=== PATIENT | female | born 2000 | race Caucasian/White ===

== ENCOUNTER 2019-08-26 10:12 | Observation (INO) | payer BC, SELFPAY ==
[2019-08-26] VITALS (9 sets, daily range): BP systolic 123–126; BP diastolic 67–73; PULSE 25–110; TEMP 37.4; O2SAT 81–100; BMI 34.0
[2019-08-26] MEDS: TERBUTALINE SULFATE 1 MG/ML VIAL 0.25 MG SUB-Q ×2 (11:42→12:31)
[2019-08-26] MEDS: LACTATED RINGERS 1,000 ML 999 ML IV CONT (12:07)
[2019-08-26 13:05] LABS: Fetal Fibronectin Negative
--- NOTE | 2019-08-26 13:51 | OBADM ---
This patient, Khushi Cerrato, admitted to the OB room OB Post 116 for observation. Patient/family oriented to hospital policies and general routines including ID bracelet, bed and alarms, visiting hours, pain management, procedures, bathroom and other care routines, personal items, smoking policy, room service/diet, and visiting hours. Patient/Family are encouraged to report perceived risks to care and to ask questions if they do not understand what they are told or what they should do.
--- NOTE | 2019-08-26 14:00 | PC.NURSE ---
1124- called,informd pt came in stating she was having left lower abdominal pain that she thinks is a cyst. Informed pt is davin frequently. Orders received for terbutaline, SVE,FFN,IV with LR bolus.
--- NOTE | 2019-08-26 14:01 | PC.NURSE ---
1157- called in for update informed SVE was closed,long,and thick. Discharge orders received if FFN is negative and contractions stop.
--- NOTE | 2019-08-29 08:38 | PM.OBTRLD ---
OB - Triage/Final Diagnosis Visit Information Date of evaluation: 08/26/19 Reason for evaluation: threatened labor Evaluation Laboratory results: Laboratory Tests 08/26/19 11:55 Fibronectin Negative
== END 2019-08-26 13:15 | disposition home or self-care (01) ==
PROVIDERS: Admitting Provider Student in an Organized Health Care Education/Training Program; Visit Provider Student in an Organized Health Care Education/Training Program
DX: O47.03 False labor before 37 completed weeks of gestation, third trimester (principal); Z3A.32 32 weeks gestation of pregnancy
CPT/HCPCS: 82731; 96372; G0378; G0379; J3105; J7120

== ENCOUNTER 2019-10-17 20:44 | Observation (INO) | payer BC, SELFPAY ==
[2019-10-17 20:56] VITALS: BP 144/83; PULSE 102
[2019-10-17 21:00] VITALS: BP 138/73; PULSE 110
[2019-10-17 21:16] VITALS: BP 149/84; PULSE 104
[2019-10-17 21:31] VITALS: BP 132/77; PULSE 96
[2019-10-17 21:32] VITALS: TEMP 36.8
[2019-10-17 21:44] VITALS: BMI 38.4
--- NOTE | 2019-10-17 21:45 | OBADM ---
This patient, Khushi Cerrato, admitted to the OB room OB Post 117 for observation. Patient/family oriented to hospital policies and general routines including ID bracelet, bed and alarms, visiting hours, pain management, procedures, bathroom and other care routines, personal items, smoking policy, room service/diet, and visiting hours. Patient/Family are encouraged to report perceived risks to care and to ask questions if they do not understand what they are told or what they should do.
--- NOTE | 2019-11-04 11:52 | PM.OBTRLD ---
OB - Triage/Final Diagnosis Visit Information Date of evaluation: 10/17/19 Reason for evaluation: threatened labor
== END 2019-10-17 22:04 | disposition home or self-care (01) ==
PROVIDERS: Admitting Provider Student in an Organized Health Care Education/Training Program; Visit Provider Student in an Organized Health Care Education/Training Program
DX: O36.8130 Decreased fetal movements, third trimester, not applicable or unspecified (principal); Z3A.39 39 weeks gestation of pregnancy
CPT/HCPCS: G0378; G0379

== ENCOUNTER 2019-10-21 04:50 | Inpatient (IN) | payer BC, SELFPAY ==
[2019-10-21] VITALS (60 sets, daily range): BP systolic 47–159; BP diastolic 10–101; PULSE 79–204; RESP 16–18; TEMP 36.9–38.3; O2SAT 98–100; BMI 38.7
--- NOTE | 2019-10-21 05:16 | LDADM ---
This patient, Khushi Cerrato, was admitted to Labor/Delivery/Recovery 106 on 10/21/19 at 04:50. Plans for labor, pain management and were discussed with patient. Patient/family oriented to hospital policies and general routines including ID bracelet, bed and alarms, visiting hours, pain management, procedures, bathroom and other care routines, personal items, smoking policy, room service/diet and guest tray routines, security routines, and visiting hours. Patient/Family are encouraged to report perceived risks to care and to ask questions if they do not understand what they are told or what they should do. See OBIX for further documentation.
[2019-10-21 05:30] LABS: Basophils Percent Auto 0.3 % (0.2-1.2); Eosinophils Absolute Auto 0.1 K/mm3 (0-0.3); Eosinophils Percent Auto 0.8 % (0-4.4); Hematocrit 35.3 % (37.0-47.0); Hemoglobin 11.2 g/dL (12.0-15.0); Immature Granulocyte Absolute 0.02 K/mm3 (0.00-0.031); Immature Granulocyte Percent A 0.3 % (0-0.5); Lymphocytes Absolute Auto 2.06 K/mm3 (0.9-3.2); Lymphocytes Percent Auto 27.7 % (18.3-44.2); Mean Corpuscular HGB Conc 31.7 g/dl (32-36); Mean Corpuscular Hemoglobin 25.2 pg (26-34); Mean Corpuscular Volume 79.5 fl (80-100); Mean Platelet Volume 9.5 fl (7.4-10.4); Monocytes Absolute Auto 0.7 K/mm3 (0.1-0.6); Monocytes Percent Auto 9.7 % (2.6-8.5); Neutrophils Absolute Auto 4.6 K/mm3 (1.3-6.7); Neutrophils Percent Auto 61.2 % (45.5-73.1); Platelet Count Result 248 k/mm3 (150-375); Red Blood Count 4.44 M/mm3 (4.2-5.4); Red Cell Distribution Width 13.7 % (11.5-14.5); White Blood Count 7.5 K/mm3 (4.5-10.0)
[2019-10-21] MEDS: AMPICILLIN 2 GM/NS 100 ML 2 GM/100 ML BAG IVPB (05:32)
[2019-10-21] MEDS: LACTATED RINGERS 1,000 ML 125 ML IV CONT ×3 (05:32→10:41)
[2019-10-21] MEDS: OXYTOCIN 30 UNITS/NS 500 ML 30 UNITS/500 ML BAG IV CONT (05:33)
--- NOTE | 2019-10-21 06:03 | P.HPUP_ITS ---
History and Physical Update Update Date/Time: 10/21/19 06:03 19 yo at 40w1d who presents for IOL. She endorses good FM. Upon questioning she reports she has been leaking fluid for the past 2 days. She denies any regular contractions. History and Physical has been reviewed, including an updated exam of the patient. There are NO changes in the patient's condition. Risks, benefits, and alternatives have been discussed and questions answered. Patient agrees to proceed with procedure. A/P: 19 yo G1 at 40w1d who presents for IOL admit to L&D routine admission orders Rh+ GBS+, will start PCN ROM + on exam today, afebrile, WBC 7.5, continue to monitor for s/sx of infect ion FHT cat 1 will start pitocin continuous EFM
--- NOTE | 2019-10-21 06:38 | P.PNAN_ITS ---
Anes - Initial Pre Proc Eval Procedure: labor epidural Date/Time: 10/21/19 06:38 Surgeon: Kenan Oliveros MD Pre Op Diagnosis: labor pain Pre Op Diagnosis: Induction of Labor Patient Data Age: 19 Gender: F Height: 1.75 m Weight: 119 kg Last Vital Signs Temp 37.4 C 10/21/19 05:45 Pulse 93 10/21/19 06:36 BP 127/68 10/21/19 06:36 Pulse Ox 98 10/21/19 06:37 Allergies Allergy/AdvReac Type Severity Reaction Status Date / Time No Known Allergies Allergy Verified 10/17/19 22:33 Laboratory Tests 10/21/19 10/21/19 05:23 05:23 WBC 7.5 K/mm3 K/mm3 (4.5-10.0) RBC 4.44 M/mm3 M/mm3 (4.2-5.4) Hgb 11.2 g/dL L g/dL (12.0-15.0) Hct 35.3 % L % (37.0-47.0) MCV 79.5 fl L fl (80-100) MCH 25.2 pg L pg (26-34) MCHC 31.7 g/dl L g/dl (32-36) RDW 13.7 % % (11.5-14.5) Plt Count 248 k/mm3 k/mm3 (150-375) MPV 9.5 fl fl (7.4-10.4) Immature Gran % (Auto) 0.3 % % (0-0.5) Neut % (Auto) 61.2 % % (45.5-73.1) Lymph % (Auto) 27.7 % % (18.3-44.2) Harvey % (Auto) 9.7 % H % (2.6-8.5) Eos % (Auto) 0.8 % % (0-4.4) Baso % (Auto) 0.3 % % (0.2-1.2) Lymph # (Auto) 2.06 K/mm3 K/mm3 (0.9-3.2) Harvey # (Auto) 0.7 K/mm3 H K/mm3 (0.1-0.6) Eos # (Auto) 0.1 K/mm3 K/mm3 (0-0.3) Baso # (Auto) 0.0 K/mm3 K/mm3 (0.0-0.1) Abs Immat Gran (auto) 0.02 K/mm3 K/mm3 (0.00-0.031) Absolute Neuts (auto) 4.6 K/mm3 K/mm3 (1.3-6.7) Absolute Nucleated RBC 0.0 K/mm3 K/mm3 (0.0-0.012) Nucleated RBC % 0.0 % % (0.0-0.2) RPR Pending Patient hx anesthesia problems: none Family hx anesthesia problems: none [facility] Family History Family History (Updated 10/17/19 @ 22:14 by Jacqueline Whatley RN) Sibling Diabetes mellitus Mother Hyperthyroidism determined by thyroid function test Social History Social History Smoking status: Never smoker Substance use: never Gender identity (if verbalized by the patient): Female Spiritual care concerns: No Anes - Eval Final PreProcedure Day of Procedure 10/21/19 06:38 Patient weight: obese Heart: regular rate and rhythm Lungs: clear to auscultation and normal air movement Airway: Mallampati scale Neurological: alert and oriented ASA classification: II Emergent: no Anesthetic plan: proceed Anesthesia type and monitoring: regional epidural and standard monitoring Informed Consent: The patient's anesthetic plan and its attendant risks and benefits were discussed with the patient/family/POA. Questions were solicited and answers provided to the satisfaction of the patient/family/POA.
[2019-10-21] MEDS: CALCIUM CARBONATE (TUMS) 500 MG (200 MG ELEMENTAL) PO (08:17)
[2019-10-21] MEDS: FAMOTIDINE 20 MG/2 ML VIAL IV PUSH (08:17)
[2019-10-21] MEDS: AMPICILLIN 1 GM/NS 50 ML 1 GM/50 ML BAG IVPB (09:15)
[2019-10-21] MEDS: ONDANSETRON INJ 4 MG/2 ML VIAL IV PUSH (09:52)
[2019-10-21 11:27] LABS: Rapid Plasma Reagin Non-Reactive (NonReactive)
--- NOTE | 2019-10-21 13:13 | PM.OBPRVD ---
OB - Delivery Note Procedure Delivery date: 10/21/19 Procedure: Patient pushed for a spontaneous vaginal delivery. A nuchal cord x1 was noted and reduced on the perineum. After the head had delivered, the shoulder was noted to be stuck behind the pubic bone. Shoulder dystocia was called. The fetus was noted to deliver RENE with the right shoulder anterior. The patient was placed in Patricia maneuver and suprapubic pressure was applied. Gently downward traction was applied to the right to attempt to deliver under the pubic bone. When the should was again unable to be delivered, attention was then turned to the left posterior shoulder. I was unable to maneuver my hand in the posterior vagina enough to rotate or deliver the posterior shoulder. Attention was then turned to the anterior right shoulder. The right shoulder was swept counter clockwise toward the torso. As the shoulder was swept, gentle traction was again applied and the anterior should was delivered under the pubic bone. The total time of the shoulder dystocia was noted to be 50 seconds. The remainder of the fetus was delivered atraumatically and placed on the maternal abdomen. The cord was clamped and cut. The cord was double clamped and cut and a segment of cord was collected for cord gases. Cord blood was collected for blood type and Coomb's testing. The placenta delivered spontaneously and was noted to be intact. The perineum was inspected and there was a 1st degree perineal laceration. The laceration was repaired with 3-0 vicryl in the usual fashion. The uterus was firm and good hemostasis was noted. The patient and fetus were stable in the delivery room. Intrapartal events: Ceph-Pelvic Disproportion (shoulder dystocia ) Induction method: none Delivery augmentation: pitocin Delivery monitor: internal FHT and internal uterine Route of delivery: Episiotomy description: None Laceration description: Perineal - 1st Degree Delivery repair: vicryl Specimen: No Estimated blood loss (mL): 250 Anesthesia type: Epidural Disposition: floor () Complications: No immediate complications [place] [facility] Date of : 10/21/19 Time of : 13:04 Weeks of gestation at delivery: 40 gender: Male Weight (pounds): 8 Weight (ounces): 10 presentation: vertex position: Left Occiput Anterior Placenta delivery description: Spontaneous cord vessel description: 3 Vessels and Nuchal Cord score one minute: 7 score five minutes: 9
[2019-10-21] MEDS: OXYTOCIN 30 UNITS/NS 500 ML 30 UNITS/500 ML BAG 125 UNITS IV CONT (13:38)
[2019-10-21] MEDS: BENZOCAINE 20% AER SPR (*SP) 56 GM CAN 1 SPRAY TOPICAL (14:23)
[2019-10-21] MEDS: WITCH HAZEL 40 PADS 1 PAD TOPICAL (14:23)
[2019-10-21] MEDS: ACETAMINOPHEN 325 MG TABLET 650 MG PO (14:23)
--- NOTE | 2019-10-21 15:40 | PC.NURSE ---
Patient transferred to post room #283 via wheelchair. Support person present. Oriented to unit, room, information board, rooming in, admission packet and security measures. Patient verbalizes understanding.
[2019-10-21] MEDS: IBUPROFEN 600 MG TABLET PO ×2 (16:23→23:13)
[2019-10-21] MEDS: DOCUSATE SODIUM 100 MG CAPSULE PO (16:23)
[2019-10-22 04:49] LABS: Hemoglobin 8.8 g/dL (12.0-15.0)
--- NOTE | 2019-10-22 07:09 | PM.DS ---
DS: Admitting Diagnosis Admitting Diagnosis Admitting Diagnosis: term/htn DS: Summary Time Spent with Patient Time attestation: Total time spent providing and/or coordinating discharge services: Exam Const: General: no acute distress Eyes: General: appearance normal, both eyes and all related structures Neck: Neck: supple and no JVD Thyroid: thyroid normal Resp: Effort & Inspection: normal respiratory effort Auscultation: clear to auscultation bilaterally Cardio: Rate: regular rate Rhythm: regular rhythm GI: Inspection: non-distended GI Palp: Yes Soft to palpation, No Tenderness to palpation present (GI) and No Guarding due to palpation present (GI) Auscultation: normal bowel sounds : General: Yes bladder normal to palpation External Female Exam: normal external appearance Speculum Exam - Vagina: normal vaginal discharge and No vaginal bleeding Speculum Exam - Cervix: nontender Bimanual exam- vagina & uterus: bladder normal to palpation and No Cervical tenderness present OB/external & speculum: No vaginal bleeding Skin: General skin exam: no rashes or lesions noted Extrem: General: normal to inspection and no edema Psych: Mental Status: mental status grossly normal Affect: normal affect DS: Data Data Completed and Pending Labs on day of discharge: Labs from last 24 hours 10/22/19 10/21/19 04:18 05:23 Hgb 8.8 L Hct 28.0 L RPR Non-reactive Discharge Plan Discharge Attending physician on discharge: Kenan Oliveros Consulting providers: Martir Merino Discharging Clinician: Kenan Oliveros Patient Disposition: Home, Self-Care Activity: may shower, no straining and pelvic rest Diet: heart healthy Patient Instructions: Antibiotic Form Stand Alone Forms: General Discharge Information Follow-up/Referrals: Armando Darnell MD [Physician] - Kenan Oliveros MD [Physician] - Discharge Medications: Continued PNV cmb#95-ferrous fumarate-FA [] 28 mg iron- 800 mcg Tablet 1 tablet PO DAILY RF: 0 Date of admission: 10/21/19 04:50 Primary Care Provider: PHYSICIAN,ELECTRICAL LABORATORY TECHNICIAN Admitting Provider: Kenan Oliveros Attending physician on admission: Kenan Oliveros
[2019-10-22 07:45] VITALS: PULSE 109; RESP 16; O2SAT 100
[2019-10-22] MEDS: POLYSACCHARIDE IRON COMPLEX 150 MG CAPSULE PO (07:54)
[2019-10-22] MEDS: IBUPROFEN 600 MG TABLET PO ×2 (07:54→14:32)
[2019-10-22 08:20] VITALS: BP 124/69; PULSE 107; RESP 16; TEMP 37.6; O2SAT 99
--- NOTE | 2019-10-22 10:13 | WPDANLDPN2 ---
Anes-Prog Note L&D Date/Time: 10/22/19 10:13 Comfortable throughout: labor and delivery Neuraxial method: epidural Epidural/Spinal procedure site: clean & non-tender Neuro status: Neuro function grossly intact. Cardiovascular status: normal Respiratory status: normal Airway patency: baseline Mental status: baseline Post-Op hydration status: normal Vital Signs: Last Vital Signs Temp 37.6 C H 10/22/19 08:20 Pulse 107 H 10/22/19 08:20 Resp 16 10/22/19 08:20 BP 124/69 10/22/19 08:20 Pulse Ox 99 10/22/19 08:20 Pain score (VAS): 0/10. Patient resting in bed at time of assessment, appears comfortable. Post-procedural complaints: none Patient feedback: Patient satisfied with anesthetic care.
[2019-10-22] MEDS: TETANUS,DIPHTHERIA,AC PERTUSSIS ADULT (0.5 ML) BOOSTRIX IM (14:34)
[2019-10-22 20:24] VITALS: BP 124/69; PULSE 102; RESP 18; TEMP 36.9; O2SAT 98
[2019-10-23] MEDS: DOCUSATE SODIUM 100 MG CAPSULE PO (07:16)
[2019-10-23] MEDS: POLYSACCHARIDE IRON COMPLEX 150 MG CAPSULE PO (07:16)
[2019-10-23 08:00] VITALS: BP 141/72; PULSE 101; RESP 18; TEMP 36.9
--- NOTE | 2019-10-23 10:27 | PC.NURSE ---
Patient viewed the discharge video Mother & Baby Care, The First Two Weeks . Patient was given the opportunity and encouraged to ask questions. Patient verbalized understanding of information shared and has been given the mother/baby guide for home reference.
--- NOTE | 2019-10-23 10:48 | PM.OBPNVD ---
OB - PN: Subj Subjective Date/time seen: 10/23/19 10:48 Narrative: Pain OK. OB - PN: Obj Data Labs CBC & Chem 7: 10/22/19 04:18 OB - PN A/P Plan Comments: A: PPD#2, doing well. P: Home to f/u 6 weeks. Exam Psych: Other: AVSS ABD soft, nontender, fundus firm EXT nontender
[2019-10-25 09:48] VITALS: BP 135/78; PULSE 88; RESP 20; TEMP 36.9; O2SAT 98
== END 2019-10-23 12:15 | disposition home or self-care (01) | DRG 806 ==
LOC: ANHOB2 10-23 08:00 → ANHLDR 10-25 18:20 → ANHOB2 10-25 18:20
PROVIDERS: Admitting Provider Student in an Organized Health Care Education/Training Program; Visit Provider Obstetrics & Gynecology
DX: O42.12 Full-term premature rupture of membranes, onset of labor more than 24 hours following rupture (principal); O75.2 Pyrexia during labor, not elsewhere classified; Z37.0 Single live birth; O99.824 Streptococcus B carrier state complicating childbirth; Z3A.40 40 weeks gestation of pregnancy; O66.0 Obstructed labor due to shoulder dystocia; O36.8330 Maternal care for abnormalities of the fetal heart rate or rhythm, third trimester, not applicable or unspecified; O69.81X0 Labor and delivery complicated by cord around neck, without compression, not applicable or unspecified; O70.0 First degree perineal laceration during delivery; O63.0 Prolonged first stage (of labor); O99.214 Obesity complicating childbirth; E66.9 Obesity, unspecified
CPT/HCPCS: 36415; 84112; 85014; 85018; 85025; 86592; 86850; 86900; 86901; 90715; A9270; J0290; J1200; J2405; J2590; J2795; J7120

== ENCOUNTER 2021-09-12 18:22 | Outpatient (CLI) | payer BC, SELFPAY ==
[2021-09-12 19:12] VITALS: BP 142/69; PULSE 98
== END 2021-09-12 19:20 | disposition home or self-care (01) ==
LOC: ANHOBOP 19:10 → ANHLDR 19:11
PROVIDERS: Visit Provider Student in an Organized Health Care Education/Training Program
DX: O42.92 Full-term premature rupture of membranes, unspecified as to length of time between rupture and onset of labor (principal)
CPT/HCPCS: 59025; 84112; 99199

== ENCOUNTER 2021-09-13 18:05 | Inpatient (IN) | payer BC, SELFPAY ==
[2021-09-13] VITALS (9 sets, daily range): BP systolic 125–137; BP diastolic 53–70; PULSE 85–98; BMI 38.4
[2021-09-13] MEDS: DINOPROSTONE 10 MG VAG INSERT VAGINAL (18:45)
[2021-09-13 19:03] LABS: Basophils Percent Auto 0.5 % (0.2-1.2); Eosinophils Percent Auto 0.6 % (0-4.4); Hematocrit 31.4 % (37.0-47.0); Hemoglobin 9.6 g/dL (12.0-15.0); Immature Granulocyte Absolute 0.02 K/mm3 (0.00-0.031); Immature Granulocyte Percent A 0.3 % (0-0.5); Lymphocytes Absolute Auto 2.21 K/mm3 (0.9-3.2); Lymphocytes Percent Auto 33.6 % (18.3-44.2); Mean Corpuscular HGB Conc 30.6 g/dl (32-36); Mean Corpuscular Hemoglobin 22.9 pg (26-34); Mean Corpuscular Volume 74.9 fl (80-100); Mean Platelet Volume 9.5 fl (7.4-10.4); Monocytes Absolute Auto 0.5 K/mm3 (0.1-0.6); Monocytes Percent Auto 8.2 % (2.6-8.5); Neutrophils Absolute Auto 3.7 K/mm3 (1.3-6.7); Neutrophils Percent Auto 56.8 % (45.5-73.1); Platelet Count Result 267 k/mm3 (150-375); Red Blood Count 4.19 M/mm3 (4.2-5.4); Red Cell Distribution Width 14.9 % (11.5-14.5); White Blood Count 6.6 K/mm3 (4.5-10.0)
[2021-09-13] MEDS: ACETAMINOPHEN 500 MG TABLET 1000 MG PO (20:02)
--- NOTE | 2021-09-13 20:04 | LDADM ---
This patient, Khushi Cerrato, was admitted to Labor/Delivery/Recovery 104 on 09/13/21 at 18:05. Plans for labor, pain management and were discussed with patient. Patient/family oriented to hospital policies and general routines including ID bracelet, bed and alarms, visiting hours, pain management, procedures, bathroom and other care routines, personal items, smoking policy, room service/diet and guest tray routines, security routines, and visiting hours. Patient/Family are encouraged to report perceived risks to care and to ask questions if they do not understand what they are told or what they should do. See OBIX for further documentation.
[2021-09-14] VITALS (91 sets, daily range): BP systolic 55–153; BP diastolic 32–105; PULSE 76–171; RESP 16–18; TEMP 36.7–37.7; O2SAT 96–100
[2021-09-14] MEDS: AMPICILLIN 2 GM/NS 100 ML 2 GM/100 ML BAG IVPB (00:30)
[2021-09-14] MEDS: LACTATED RINGERS 1,000 ML 125 ML IV CONT ×3 (00:30→07:00)
[2021-09-14] MEDS: AMPICILLIN 1 GM/NS 50 ML 1 GM/50 ML BAG IVPB ×2 (04:30→08:16)
[2021-09-14] MEDS: OXYTOCIN 30 UNITS/NS 500 ML 30 UNITS/500 ML BAG IV CONT (04:31)
--- NOTE | 2021-09-14 06:18 | P.PNAN_ITS ---
Anes - Eval Pre Procedure Procedure: labor epidural Date/Time: 09/14/21 06:18 Surgeon: navneet Preop Diagnosis: pain during labor Pre Op Diagnosis: IOL Patient Data Age: 21 Gender: F Height: 1.75 m Weight: 118 kg Last Vital Signs Temp 36.8 C 09/14/21 06:00 Pulse 100 09/14/21 06:16 BP 145/67 H 09/14/21 06:16 Pulse Ox 99 09/14/21 06:14 Allergies Allergy/AdvReac Type Severity Reaction Status Date / Time No Known Allergies Allergy Verified 10/17/19 22:33 Home Medications Medication Instructions Recorded Confirmed Type PNV cmb#95-ferrous fumarate-FA 1 tablet PO DAILY 10/21/19 08/31/21 History [] citalopram 40 mg PO DAILY 08/31/21 08/31/21 History Laboratory Tests 09/13/21 09/13/21 09/13/21 18:40 18:40 18:40 WBC 6.6 K/mm3 K/mm3 (4.5-10.0) RBC 4.19 M/mm3 L M/mm3 (4.2-5.4) Hgb 9.6 g/dL L g/dL (12.0-15.0) Hct 31.4 % L % (37.0-47.0) MCV 74.9 fl L fl (80-100) MCH 22.9 pg L pg (26-34) MCHC 30.6 g/dl L g/dl (32-36) RDW 14.9 % H % (11.5-14.5) Plt Count 267 k/mm3 k/mm3 (150-375) MPV 9.5 fl fl (7.4-10.4) Immature Gran % (Auto) 0.3 % % (0-0.5) Neut % (Auto) 56.8 % % (45.5-73.1) Lymph % (Auto) 33.6 % % (18.3-44.2) Schley % (Auto) 8.2 % % (2.6-8.5) Eos % (Auto) 0.6 % % (0-4.4) Baso % (Auto) 0.5 % % (0.2-1.2) Lymph # (Auto) 2.21 K/mm3 K/mm3 (0.9-3.2) Schley # (Auto) 0.5 K/mm3 K/mm3 (0.1-0.6) Eos # (Auto) 0.0 K/mm3 K/mm3 (0-0.3) Baso # (Auto) 0.0 K/mm3 K/mm3 (0.0-0.1) Abs Immat Gran (auto) 0.02 K/mm3 K/mm3 (0.00-0.031) Absolute Neuts (auto) 3.7 K/mm3 K/mm3 (1.3-6.7) Absolute Nucleated RBC 0.0 K/mm3 K/mm3 (0.0-0.012) Nucleated RBC % 0.0 % % (0.0-0.2) RPR Pending Blood Type B Positive Antibody Screen Negative Patient hx anesthesia problems: none Family hx anesthesia problems: none Results Review: All pre-operative results and documents have been reviewed as part of the pre-operative evaluation. [facility] Past Medical History Medical History (Updated 09/14/21 @ 06:19 by Marilee Ramirez CRNA) IUP (intrauterine ), incidental Obesity Family History Family History Sibling Diabetes mellitus Mother Hyperthyroidism determined by thyroid function test Social History Social History Smoking status: Never smoker Substance use: never Gender identity (if verbalized by the patient): Female Spiritual care concerns: No Exam Day of Procedure 09/14/21 06:18
[2021-09-14 06:33] LABS: Rapid Plasma Reagin Non-Reactive (NonReactive)
[2021-09-14] MEDS: CALCIUM CARBONATE (TUMS) 500 MG (200 MG ELEMENTAL) PO (08:15)
--- NOTE | 2021-09-14 08:45 | WPDOBADMIT ---
Obstetrics - Admit Note Admission Note: record reviewed. Additions to the history and/or subsequent changes in the physical findings follow. 21 y/o at 39 weeks here for scheduled induction of labor. Prior baby weighed 8#10oz and a mild shoulder dystocia was encountered. GBS pos. Cervidil overnight. SROM after MN, now receiving oxytocin. Comfortable with epidural. AVSS NST reactive TOCO: contractions every 2-4 min ABD soft, nontender, gravid, vertex EXT nontender Cervix 7/100/-1 A: IUP at term, here for IOL. GBS pos. P: Continue ampicillin. Oxytocin. Anticipate . Reviewed risks, benefits, alternatives to induction of labor. Specifically, reviewed risks of shoulder dystocia. She prefers to go ahead with induction of labor.
[2021-09-14] MEDS: ONDANSETRON INJ 4 MG/2 ML VIAL IV PUSH (08:50)
--- NOTE | 2021-09-14 09:47 | P.DS_ITS ---
DS: Admitting Diagnosis Discharge Date 09/15/21 Admitting Diagnosis IUP at 39 weeks GBS colonization DS: Discharge Diagnosis Discharge Diagnosis (1) (normal spontaneous vaginal delivery): Code(s): O80 - Encounter for full-term uncomplicated delivery Status: Acute (2) GBS (group B Streptococcus carrier), +RV culture, currently : Code(s): O99.820 - Streptococcus B carrier state complicating Status: Acute OB - DS: Summary OB Procedures : None OB Procedures Intrapartum: Spontaneous Vag Delivery OB Procedures: : None DS: Data Data Completed and Pending Labs on day of discharge: Labs from last 24 hours 09/13/21 09/13/21 09/13/21 18:40 18:40 18:40 WBC 6.6 RBC 4.19 L Hgb 9.6 L Hct 31.4 L MCV 74.9 L MCH 22.9 L MCHC 30.6 L RDW 14.9 H Plt Count 267 MPV 9.5 Immature Gran % (Auto) 0.3 Neut % (Auto) 56.8 Lymph % (Auto) 33.6 Todd % (Auto) 8.2 Eos % (Auto) 0.6 Baso % (Auto) 0.5 Lymph # (Auto) 2.21 Todd # (Auto) 0.5 Eos # (Auto) 0.0 Baso # (Auto) 0.0 Abs Immat Gran (auto) 0.02 Absolute Neuts (auto) 3.7 Absolute Nucleated RBC 0.0 Nucleated RBC % 0.0 RPR Non-reactive Blood Type B Positive Antibody Screen Negative Discharge Plan Discharge Attending physician on discharge: Franky Chung Discharging Clinician: Franky Chung Patient Disposition: Home, Self-Care Activity: pelvic rest Diet: regular Discharge Instructions: Call or return if temperature above 100.4? F, increased abdominal pain, increased vaginal bleeding or any new problems. Stand Alone Forms: General Discharge Information Follow-up/Referrals: Kenan Oliveros MD [Physician] - 6 Weeks Discharge Medications: New ibuprofen 600 mg tablet 600 mg PO Q6H PRN (Reason: cramps) Qty: 30 RF: 0 ferrous sulfate 325 mg (65 mg iron) tablet 325 mg PO DAILY Qty: 30 RF: 0 Continued PNV cmb#95-ferrous fumarate-FA [] 28 mg iron- 800 mcg Tablet 1 tablet PO DAILY RF: 0 citalopram 40 mg Tablet 40 mg PO DAILY RF: 0 Date of admission: 09/13/21 18:05 Primary Care Provider: PHYSICIAN,[employer]ICE OR WORK DISPATCHER Admitting Provider: Kenan Oliveros Attending physician on admission: Kenan Oliveros Condition: Stable
--- NOTE | 2021-09-14 09:47 | P.PCNOB_ITS ---
OB - Delivery Note Procedure Delivery date: 09/14/21 Procedure: Induction of labor with Events: Positive Group B Strep (GBS) Induction method: Per Cervidil Protocol Delivery augmentation: Pitocin Delivery monitor: External FHT, External Uterine and Internal Uterine Route of delivery: Laceration Description: None Specimen: Yes (cord blood) Quantitative Blood Loss (ml): 120 Anesthesia type: Epidural Disposition: PACU Complications: None Narrative: 21 y/o at 39 weeks gestation who presented to the hospital for induction of labor. Cervidil was placed overnight. She received ampicillin for GBS colonization. She had SROM and Cervidil was removed. Oxytocin was administered intravenously. She received an epidural for pain control. Her labor progressed and her cervix dilated completely. She pushed with good effort and delivered the infant's head to the perineum, followed by the body. The nose and mouth were bulb suctioned. After a delay, the cord was clamped and cut. The was handed off the field. Cord blood was collected. The placenta delivered spontaneously and was grossly normal in appearance. The usual 3 vessel cord was noted. There were no lacerations. Needle and instrument counts were correct. The patient was taken to recovery room in stable condition. The went to the nursery in stable condition. I was present and scrubbed for the entire delivery. [place] [facility] Date of : 09/14/21 Time of : 09:36 Weeks of gestation at delivery: 39 gender: Female Weight (pounds): 7 Weight (ounces): 11 presentation: vertex position: Left Occiput Anterior Placenta delivery description: Spontaneous and Normal Configuration Cord Vessel Description: 3 Vessels and Delayed Cord Clamping score one minute: 9 score five minutes: 9
[2021-09-14] MEDS: OXYTOCIN 30 UNITS/NS 500 ML 30 UNITS/500 ML BAG 125 UNITS IV CONT (10:14)
[2021-09-14] MEDS: WITCH HAZEL 40 PADS 1 PAD TOPICAL (11:47)
[2021-09-14] MEDS: IBUPROFEN 600 MG TABLET PO ×2 (11:47→23:14)
--- NOTE | 2021-09-14 12:56 | OBPPTRN ---
1203-Patient transferred to post room #283 via wheelchair. Support person present. Oriented to unit, room, information board, rooming in, admission packet and security measures. Patient verbalizes understanding.
[2021-09-14] MEDS: DOCUSATE SODIUM 100 MG CAPSULE PO (17:19)
[2021-09-14] MEDS: POLYSACCHARIDE IRON COMPLEX 150 MG CAPSULE PO (17:19)
[2021-09-15 04:08] VITALS: BP 125/68; PULSE 98; RESP 16; TEMP 36.5
[2021-09-15 04:39] LABS: Hematocrit 27.4 % (37.0-47.0); Hemoglobin 8.4 g/dL (12.0-15.0)
--- NOTE | 2021-09-15 08:29 | PM.OBPNVD ---
OB - PN: Subj Subjective Date/time seen: 09/15/21 08:29 Narrative: Pain OK. Would like to go home if OK with peds. OB - PN: Obj Data Labs CBC & Chem 7: 09/15/21 04:11 Labs: Laboratory Results - last 24 hr 09/15/21 04:11 Hgb 8.4 L Hct 27.4 L OB - PN A/P Plan Comments: A: PPD#1, doing well. P: Home if OK with peds, to f/u 6 weeks. Exam Psych: Other: AVSS ABD soft, nontender, fundus firm EXT nontender
[2021-09-15] MEDS: DOCUSATE SODIUM 100 MG CAPSULE PO (08:49)
[2021-09-15] MEDS: TETANUS,DIPHTHERIA,AC PERTUSSIS ADULT (0.5 ML) BOOSTRIX IM (08:49)
[2021-09-15] MEDS: POLYSACCHARIDE IRON COMPLEX 150 MG CAPSULE PO (08:49)
--- NOTE | 2021-09-15 10:41 | WPDANLDPN2 ---
Anes-Prog Note L&D Date/Time: 09/15/21 10:41 Comfortable throughout: labor and delivery Neuraxial method: epidural Epidural/Spinal procedure site: clean & non-tender Neuro status: Neuro function grossly intact. Cardiovascular status: normal Respiratory status: normal Airway patency: baseline Mental status: baseline Post-Op hydration status: normal Vital Signs: Last Vital Signs Temp 97.7 F 09/15/21 04:08 Pulse 98 09/15/21 04:08 Resp 16 09/15/21 04:08 BP 125/68 09/15/21 04:08 Pulse Ox 99 09/14/21 12:30 Pain score (VAS): 0/10 I/O: Intake & Output 09/14/21 09/15/21 09/15/21 23:59 07:59 15:59 Intake Total 500 600 Balance 500 600 Post-procedural complaints: none Patient feedback: Patient satisfied with anesthetic care.
--- NOTE | 2021-09-15 17:21 | PC.NURSE ---
1500 Patient was given the opportunity to view the discharge video Mother & Baby Care, The First Two Weeks and to ask questions. Patient declined viewing the video and has been given the mother/baby guide for home reference. She stated she viewed the video with her last child.
[2021-09-17 09:54] VITALS: BP 138/76; PULSE 89; RESP 16; TEMP 37.3; O2SAT 98
== END 2021-09-15 15:22 | disposition home or self-care (01) | DRG 807 ==
LOC: ANHLDR 09-14 12:32 → ANHOB2 09-15 13:25 → ANHLDR 09-17 11:29 → ANHOB2 09-17 11:29
PROVIDERS: Admitting Provider Student in an Organized Health Care Education/Training Program; Visit Provider Obstetrics & Gynecology
DX: O99.824 Streptococcus B carrier state complicating childbirth (principal); Z37.0 Single live birth; Z3A.39 39 weeks gestation of pregnancy; O36.8330 Maternal care for abnormalities of the fetal heart rate or rhythm, third trimester, not applicable or unspecified; O99.344 Other mental disorders complicating childbirth; F32.A Depression, unspecified; O99.892 Other specified diseases and conditions complicating childbirth; Z87.59 Personal history of other complications of pregnancy, childbirth and the puerperium
CPT/HCPCS: 36415; 84112; 85014; 85018; 85025; 86592; 86850; 86900; 86901; 90715; A9270; J0290; J2405; J2590; J2795; J7120

== ENCOUNTER 2023-09-29 14:01 | Outpatient (CLI) | payer BC, SELFPAY ==
[2023-09-29 15:24] LABS: Beta HCG Quantitative 3.67 mIU/ML
== END 2023-09-29 14:02 | disposition home or self-care (01) ==
LOC: ANHLAB 14:03
PROVIDERS: Visit Provider Student in an Organized Health Care Education/Training Program
DX: N91.2 Amenorrhea, unspecified (principal)
CPT/HCPCS: 36415; 84702